=== PATIENT | female | born 1960 | race Caucasian/White ===

== ENCOUNTER 2019-01-31 16:19 | Emergency (ER) | payer BC ==
--- NOTE | 2019-01-31 16:34 | EDM.PDOC ---
ED HPI GENERAL MEDICAL PROBLEM - General Chief Complaint: Respiratory Problem Stated Complaint: Shortness of breath, cough Time Seen by Provider: 01/31/19 16:20 Source of Information: Reports: Patient, Old Records ([facility] chart/EMR) History Limitations: Reports: No Limitations - History of Present Illness INITIAL COMMENTS - FREE TEXT/NARRATIVE: The patient drove herself to the emergency room for evaluation of a 3-4 day history of progressive clear productive cough, mild wheezing, and mild dyspnea with symptoms refractory to home Proventil nebulizer treatments. She denies any fever or known exposure to infection. The patient denies any chest pain/pressure , heart flutter, dizziness, orthostasis, orthopnea, diaphoresis, paresthesias, recent decreased exercise tolerance, or any other anginal-type symptoms. No recent history of abdominal pain, heartburn, nausea, diarrhea, melena, gross hematochezia, or any food intolerance, including fatty foods, etc.. She denies any specific pain or discomfort. Patient has not measured her temperature with no other medications to this point. Onset: Gradual Onset Date: 01/28/19 Duration: Constant, Getting Worse Location: Reports: Other (No pain) Quality: Reports: Same as Previous Episode Severity: Moderate Improves with: Reports: None Worsens with: Reports: None Context: Reports: Other (As above). Denies: Sick Contact, Trauma Associated Symptoms: Reports: Cough, cough w sputum, Shortness of Breath. Denies: Confusion, Chest Pain, Diaphoresis, Headaches, Loss of Appetite, Malaise , Nausea/Vomiting, Syncope, Weakness Treatments HOG COUNTER: Reports: Other Medication(s) (As above) - Related Data Allergies Allergy/AdvReac Type Severity Reaction Status Date / Time pneumococcal vaccine Allergy Edema Verified 02/27/18 12:25 tetanus toxoid, adsorbed Allergy Edema Verified 02/27/18 12:25 Home Meds: Home Meds Clobetasol Propionate 1 applic TOP BID PRN 02/23/15 [History] Furosemide [Lasix] 40 mg PO DAILY 02/23/15 [History] Pantoprazole Sodium 40 mg PO BID 02/23/15 [History] Thyroid [[place] Thyroid] 120 mg PO DAILY 02/23/15 [History] buPROPion [buPROPion XL] 300 mg PO DAILY 02/23/15 [History] Dexlansoprazole [Dexilant] 60 mg PO DAILY PRN 02/26/18 [History] Fluticasone/Salmeterol [Advair 100-50] 1 puff INH BID 02/26/18 [History] Montelukast Sodium 10 mg PO BEDTIME 02/26/18 [History] ZOLMitriptan [Zolmitriptan Odt] 1 tab SL ASDIRECTED PRN MDD 10 mg 02/26/18 [ History] metFORMIN [Glucophage XR] 500 mg PO BIDMEALS 02/26/18 [History] Albuterol/Ipratropium [DuoNeb 3.0-0.5 MG/3 ML] 3 ml NEB QID #60 neb 01/31/19 [Rx ] Potassium Chloride 20 meq PO DAILY 01/31/19 [History] amLODIPine Besylate [Amlodipine Besylate] 10 mg PO DAILY 01/31/19 [History] guaiFENesin/Dextromethorphan [Mucinex Dm ER 1,200-60 mg Tab] 1 each PO BID #20 tab.er.12h 01/31/19 [Rx] Past Medical History HEENT History: Reports: Allergic Rhinitis Cardiovascular History: Reports: High Cholesterol, Hypertension Respiratory History: Reports: Bronchitis, Recurrent, Intubation, Previous, Pneumonia, Recurrent, Sleep Apnea, Other (See Below). Denies: Intubation, Difficult Other Respiratory History: Paralysed lung hx after low back surgery as below with subsequent improvement however persistent chronic recurrent bronchitis. Reactive airway disease with infections however negative PFTs. CPAP therapy with sleep apnea and borderline pulmonary fibrosis by chest x-ray. 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 Gastrointestinal History: Reports: Cholelithiasis, Colon Polyp, Gastritis, GERD , Other (See Below). Denies: GI Bleed, PUD Other Gastrointestinal History: Stable by serial CT scans splenic granuloma and recent meter left adrenal lipidemous adenoma. Excision of tubular adenomas from the cecum, transverse colon, and sigmoid colon on 02/24/15. 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 Trimalleolar left ankle fracture on 05/03/14 requiring surgery as below. Mild. Right shoulder rotator cuff tear in 2017. Neurological History: Reports: Headaches, Chronic, Migraines Psychiatric History: Reports: Anxiety, Depression Endocrine/Metabolic History: Reports: Hypothyroidism, Obesity/BMI 30+ Dermatologic History: Reports: Seborrheic Dermatitis - Past Surgical History GI Surgical History: Reports: Cholecystectomy, Colonoscopy, EGD, Other (See Below) Other GI Surgeries/Procedures: EGD with biopsies and colonoscopy with multiple polypectomies as above on 02/24/15. Last EGD on 02/27/18 with negative biopsies for H. pylori and otherwise negative serial biopsies. Neurological Surgical History: Reports: Laminectomy, Lumbar Spine, Spinal Fusion , Other (See Below). Denies: C-Spine, Discectomy, Intracranial Other Neurological Surgeries/Procedures: Right-sided L5-S1 hemilaminectomy and foraminotomy with additional L4-L5 hemilaminectomy and foraminotomy on 09/22/12. Anterior spinal fusion of L4-L5 and L5-S1 with insertion of intervertebral disc at L4-5 and L5-S1 on 09/22/12. Musculoskeletal Surgical History: Reports: ORIF, Other (See Below) Other Musculoskeletal Surgeries/Procedures:: ORIF of left ankle fracture on with subsequent lateral plate removal. Dermatological Surgical History: Reports: Other (See Below) Other Dermatological Surgeries/Procedures: Skin excisions 2 left seborrheic Ur ptosis from the back on 12/27/15 - Past Imaging History Past Imaging History: Reports: Cardiac Echo (Normal echocardiogram on 11/26/17 with ejection fraction of 6065 percent.), Carotid US (Last carotid artery Doppler studies on 02/20/17.), CAT Scan (CT of the abdomen and pelvis on and 03/03/18. CT of the chest on 10/03/17 on 02/10/13. CT of the lumbar spine on 03/26/12.), Mammogram (Last mammogram on 12/04/17.), MRI (MRI of the left ankle on 06/30/18. MRI of the right shoulder on 06/01/16. MRI of the C-spine on .), PFT (Normal PFTs including diffusion studies on 10/03/17.), Sleep Study ( Last sleep study including CPAP titration on 08/23/16.), Stress Testing ( Cardiolite stress test on 02/10/15 with ejection fraction of 80%.), Ultrasound ( Abdominal aortic ultrasound on 06/20/16. Thyroid ultrasound on 11/10/14. Pelvic ultrasound on 12/07/13.) Social & Family History - Tobacco Use Smoking Status *Q: Former Smoker Tobacco Use Within Last Twelve Months: No Years of Tobacco use: 22 Packs/Tins Daily: 1 Packs/Tins Daily Comment: Smoking in 1997. Used Tobacco, but Quit: Yes - Recreational Drug Use Recreational Drug Use: Yes Drug Use in Last 12 Months: No Recreational Drug Type: Reports: Marijuana/Hashish (Experimental as a teenager) - Living Situation & Occupation Occupation: Employed (Office at [employer]) ED ROS GENERAL - Review of Systems Review Of Systems: Comprehensive ROS is negative, except as noted in HPI. ED EXAM, GENERAL - Physical Exam Exam: See Below Exam Limited By: No Limitations General Appearance: Alert, WD/WN, No Apparent Distress Eye Exam: Bilateral Eye: EOMI, Normal Inspection (No nystagmus), PERRL Ears: Normal External Exam, Normal Canal, Hearing Grossly Normal, Normal TMs Nose: Normal Mucosa, No Blood, Clear Rhinorrhea (Mild bilateral) Throat/Mouth: Normal Inspection, Normal Lips, Normal Teeth, Normal Gums, Normal Oropharynx, Normal Voice, No Airway Compromise. No: Dysphagia, Perioral Cyanosis Head: Atraumatic, Normocephalic. No: Facial Swelling, Facial Tenderness, Sinus Tenderness Neck: Normal Inspection, Supple, Non-Tender, Full Range of Motion. No: Lymphadenopathy (L), Lymphadenopathy (R), Thyromegaly Respiratory/Chest: No Respiratory Distress, Lungs Clear, Normal Breath Sounds, No Accessory Muscle Use, Chest Non-Tender. No: Retractions Cardiovascular: Normal Peripheral Pulses, Regular Rate, Rhythm, No Edema, No Gallop, No JVD, No Murmur, No Rub. No: Gallop/S4, Friction Rub Peripheral Pulses: 2+: Radial (L), Radial (R) GI/Abdominal: Normal Bowel Sounds, Soft, Non-Tender, No Organomegaly, No Distention, No Abnormal Bruit, No Mass, Other (Obese). No: Guarding (Female) Exam: Deferred Rectal (Female) Exam: Deferred Back Exam: Decreased Range of Motion (Stable). No: CVA Tenderness (L), CVA Tenderness (R), Muscle Spasm, Paraspinal Tenderness, Vertebral Tenderness Extremities: Normal Inspection, Normal Range of Motion, Non-Tender, No Pedal Edema, Normal Capillary Refill. No: Anand's Sign Neurological: Alert, Oriented, CN II-XII Intact, Normal Cognition, Normal Gait, No Motor/Sensory Deficits Psychiatric: Normal Affect, Normal Mood Skin Exam: Warm, Dry, Intact, Normal Color, No Rash. No: Diaphoretic Lymphatic: No Adenopathy Course - Vital Signs Last Recorded V/S: Last Vital Signs Temp 37.1 C 01/31/19 16:20 Pulse 94 01/31/19 16:20 Resp 16 01/31/19 16:20 BP 135/72 01/31/19 16:20 Pulse Ox 98 01/31/19 16:20 Vital Signs - 24 hr 01/31/19 16:20 Temperature [ 37.1 C Temporal] Pulse, 94 Peripheral [ Pulse Oximetry] Respiratory 16 Rate Blood Pressure 135/72 [Right Upper Arm] O2 Sat by Pulse 98 Oximetry - Orders/Labs/Meds Orders: Active Orders 24 hr Category Date Time Status Obtain Past Medical Record [OM.PC] Routine Oth 01/31/19 16:34 Active Labs: None Meds: Medications Discontinued Medications Generic Name Dose Route Start Last Admin Trade Name Freq PRN Reason Stop Dose Admin Methylprednisolone Acetate 80 mg 01/31/19 16:35 01/31/19 16:39 Depo-Medrol IM 01/31/19 16:36 80 mg ONETIME ONE Administration - Radiology Interpretation Free Text/Narrative:: None Departure - Departure Time of Disposition: 16:55 Disposition: Home, Self-Care 01 Condition: Good Clinical Impression: HTN, Benign hypertension, Osteoarthritis, Bronchitis, Peptic reflux disease Reactive airway disease Qualifiers: Asthma severity: mild Asthma persistence: intermittent Asthma complication type : with acute exacerbation Qualified Code(s): J45.21 - Mild intermittent asthma with (acute) exacerbation Allergic rhinitis Qualifiers: Allergic rhinitis trigger: unspecified Allergic rhinitis seasonality: unspecified Qualified Code(s): J30.9 - Allergic rhinitis, unspecified - Discharge Information *PRESCRIPTION DRUG MONITORING PROGRAM REVIEWED*: Not Applicable *COPY OF PRESCRIPTION DRUG MONITORING REPORT IN PATIENT KANCHAN: Not Applicable Prescriptions: Albuterol/Ipratropium [DuoNeb 3.0-0.5 MG/3 ML] 3 ml NEB QID #60 neb guaiFENesin/Dextromethorphan [Mucinex Dm ER 1,200-60 mg Tab] 1 each PO BID #20 tab.er.12h Instructions: Acute Bronchitis, Adult, [id number], Asthma, Adult, Easy-to- Read Referrals: Janet Izquierdo, AUDIO INSTALLER [Primary Care Provider] - Forms: ED Department Discharge Additional Instructions: 1. Follow up with your regular provider in 10-14 days as needed, if symptoms persist. Bring these discharge instructions with you to that visit.. 2. Tylenol 650 mg by mouth every 4 hours and/or OTC ibuprofen 2-3 tabs by mouth every 6 hours with food as directed./needed. You may stagger these medications for 48-72 hours only, which essentially means that you are receiving a pain medication about every 2 hours. 3. DuoNeb nebulizer treatments are to be used at least 4 times a day with every 4 hours as needed. Stop using your help 0 nebulizer treatments for the time being unless otherwise directed and/or after completion of your DuoNeb treatments as above. 4. Immediately after this visit verify that your cellular telephone's voicemail has been activated and is empty. Also verify that your home telephone 's answering machine is operating properly and has space to receive messages. Note that it is sometimes necessary for us to be able to contact you at a later date to discuss your medical care. 5. Please remember that we are ALWAYS here for you and want to answer any questions you may have. Feel free to call the hospital any time and we call you back RALU. 6. Hygiene precautions as discussed. 7. Obtain your influenza booster RAUL as discussed - Problem List & Annotations (1) Bronchitis SNOMED Code(s): 53958453 Code(s): J40 - BRONCHITIS, NOT SPECIFIED ACUTE OR CHRONIC Status: Acute Priority: High Onset Date: ~01/21/19 Annotation/Comment:: Probable viral bronchitis. Various therapeutic options were discussed with the patient with no further blood work, chest x-ray etc. at this time per patient's request. Symptomatic relief as per discharge instructions. High-dose Mucinex DM on an outpatient basis. Compliance with nebulizer treatments strongly encouraged. Fever and overall normal clinical exam with brief illness history. No indication for antibiotics at this time. Update of influenza booster RAUL strongly encouraged. (2) Reactive airway disease SNOMED Code(s): 840152075803 Code(s): J45.909 - UNSPECIFIED ASTHMA, UNCOMPLICATED Status: Chronic Priority: High Annotation/Comment:: She will hold her Proventil nebulizer treatments for now with emergency room prescription/supply of DuoNeb provided to the patient. IM Depo-Medrol given. Note previous history of negative PFTs, including diffusion studies as above. Qualifiers: Asthma severity: mild Asthma persistence: intermittent Asthma complication type: with acute exacerbation Qualified Code(s): J45.21 - Mild intermittent asthma with (acute) exacerbation (3) Allergic rhinitis SNOMED Code(s): 91606462 Code(s): J30.9 - ALLERGIC RHINITIS, UNSPECIFIED Status: Chronic Priority : Medium Annotation/Comment:: Stable by history. IM Depo-Medrol given as above. Qualifiers: Allergic rhinitis trigger: unspecified Allergic rhinitis seasonality: unspecified Qualified Code(s): J30.9 - Allergic rhinitis, unspecified (4) HTN, Benign hypertension SNOMED Code(s): 62892077 Code(s): I10 - ESSENTIAL (PRIMARY) HYPERTENSION Status: Acute Priority: Medium Annotation/Comment:: Stable by history. Continue to observe closely by regular provider. (5) Osteoarthritis SNOMED Code(s): 427951656 Code(s): M19.90 - UNSPECIFIED OSTEOARTHRITIS, UNSPECIFIED SITE Status: Chronic Priority: Medium Annotation/Comment:: Stable by history (6) Peptic reflux disease SNOMED Code(s): 893102316 Code(s): K21.9 - GASTRO-ESOPHAGEAL REFLUX DISEASE WITHOUT ESOPHAGITIS Status: Chronic Priority: Medium Annotation/Comment:: Stable by history - Problem List Review Problem List Initiated/Reviewed/Updated: Yes - My Orders Last 24 Hours: My Active Orders 01/31/19 16:34 Obtain Past Medical Record [OM.PC] Routine - Assessment/Plan Last 24 Hours: My Active Orders 01/31/19 16:34 Obtain Past Medical Record [OM.PC] Routine Assessment:: As above Plan: As above. Extensive precautions were given to the patient, who is in agreement with the treatment plan. See Patient Instructions for further treatment and plan.
[2019-01-31] MEDS ORDERED: methylPREDNISolone Acetate 80 MG/ML SDV IM ONE (16:35)
[2019-01-31 16:42] VITALS: BP 135/72; PULSE 94
== END 2019-01-31 16:52 | disposition home or self-care (01) ==
LOC: LL.ED 16:19
DX: I10 Essential (primary) hypertension (principal); M15.0 Primary generalized (osteo)arthritis; J45.21 Mild intermittent asthma with (acute) exacerbation; K21.9 Gastro-esophageal reflux disease without esophagitis; J30.9 Allergic rhinitis, unspecified; F41.9 Anxiety disorder, unspecified; F32.9 Major depressive disorder, single episode, unspecified; E03.9 Hypothyroidism, unspecified; E66.9 Obesity, unspecified; Z88.7 Allergy status to serum and vaccine; Z79.51 Long term (current) use of inhaled steroids; Z87.891 Personal history of nicotine dependence; Z79.899 Other long term (current) drug therapy; Z79.890 Hormone replacement therapy
CPT/HCPCS: 96372; 99284; J1040